=== PATIENT | male | born 1950 | race Caucasian/White ===

== ENCOUNTER 2016-12-28 06:44 | Day surgery (SDC) | payer OTHER ==
[2016-12-22 11:48] LABS: APPEARANCE,URINE CLEAR; BILIRUBIN,URINE NEGATIVE (NEGATIVE); GLUCOSE, URINE NEGATIVE (NEGATIVE); KETONES,URINE NEGATIVE (NEGATIVE); LEUKOCYTE ESTERASE,URINE NEGATIVE (NEGATIVE); NITRITE,URINE NEGATIVE (NEGATIVE); PROTEIN,URINE NEGATIVE (NEGATIVE); URINE SPECIFIC GRAVITY 1.004; UROBILINOGEN,URINE NEGATIVE mg/dL (<2.0)
[2016-12-22 13:08] LABS: HEMATOCRIT 48.5 % (37.9-51.0); HEMOGLOBIN 16.7 g/dL (13.5-17.0); HGB HCT DIFFERENCE 1.6; MEAN CORPUSCULAR HGB CONC 34.4 g/dL (32.0-36.0); MEAN CORPUSCULAR VOLUME 93 fl (80-97); RED BLOOD COUNT 5.22 10^6/uL (4.35-5.55); RED CELL DISTRIBUTION WIDTH 13.2 % (11.5-14.0); WHITE BLOOD COUNT 7.8 10^3/uL (4.0-10.5)
[2016-12-22 13:11] LABS: PROTHROMBIN TIME 12.4 SEC (11.4-15.4)
--- NOTE | 2016-12-23 11:22 | EKG REPORT ---
SEVERITY:- ABNORMAL ECG - SINUS RHYTHM LAD, CONSIDER LEFT ANTERIOR FASCICULAR BLOCK : Confirmed by: Robson Ramirez 23-Dec-2016 11:21:36
[~2016-12-28 06:44] MED LIST: CEFAZOLIN SODIUM 1 GM in DEXTROSE 5%-WATER 50 ML IV PRN; LACTATED RINGERS 1000 ML IV PRN; LIDOCAINE 0.5% INJ-PF (5 MG/ML) 50 ML SDV SUBCUT PRN
[2016-12-28] MEDS ORDERED: BUPIVACAINE HCL 0.25% /EPINEPHRINE INJ/PF 30 ML SDV ONE ×2 (07:48→09:28)
[2016-12-28] MEDS ORDERED: SODIUM BICARBONATE 8.4% INJ 50 MEQ/50 ML DISP.SYRIN ONE (07:48)
[2016-12-28] MEDS ORDERED: LIDOCAINE 1% INJ-PF (10 MG/ML) 30 ML SDV ONE ×2 (07:48→09:28)
[2016-12-28] MEDS ORDERED: MIDAZOLAM 2 MG/2 ML INJ ONE (08:07)
[2016-12-28] MEDS ORDERED: FENTANYL CITRATE INJ/PF 100 MCG/2 ML AMPUL ONE (08:07)
[2016-12-28] MEDS ORDERED: PROPOFOL INJ 200 MG/20 ML VIAL IV ONE (08:07)
[2016-12-28] MEDS ORDERED: EPHEDRINE SULFATE INJ 50 MG/1 ML AMPULE ONE (08:07)
[2016-12-28] MEDS ORDERED: DEXMEDETOMIDINE INJ 80 MCG/20 ML VIAL IV ONE (08:07)
[2016-12-28] MEDS ORDERED: PROMETHAZINE HCL INJ 25 MG/1 ML VIAL IV PRN ×2 (08:50)
[2016-12-28] MEDS ORDERED: FENTANYL CITRATE INJ/PF 100 MCG/2 ML AMPUL IV PRN ×3 (08:50)
[2016-12-28] MEDS ORDERED: OXYCODONE-ACETAMINOPHEN 5-325 MG TABLET PO PRN ×3 (08:50→11:03)
[2016-12-28] MEDS ORDERED: DIPHENHYDRAMINE HCL 50 MG/ML VIAL IV PRN (08:50)
[2016-12-28] MEDS ORDERED: MORPHINE SULFATE 10 MG/ML INJ IV PRN (08:50)
[2016-12-28] MEDS ORDERED: MEPERIDINE HCL/PF INJ 25 MG/1 ML DISP.SYRIN IV PRN (08:50)
[2016-12-28] MEDS ORDERED: CEFAZOLIN INJ 1 GM VIAL ONE (10:45)
--- NOTE | 2016-12-28 12:04 | OPERATIVE REPORT E ---
Operative Report NAME: EDU HERNANDEZ : 1950 AGE: 66Y DATE OF SURGERY: 12/28/2016 ROOM: PREOPERATIVE DIAGNOSES: 1. Chronic pain syndrome. 2. Lumbar radiculopathy. POSTOPERATIVE DIAGNOSES: 1. Chronic pain syndrome. 2. Lumbar radiculopathy. PROCEDURE: Spinal cord stimulator implant with [employer] single lead system. SURGEON: LESLYE LAI M.D. SALES LEADER: YONATHAN MAURO M.D. ANESTHESIA: MAC. COMPLICATIONS: None. PROCEDURE IN DETAIL: After obtaining informed consent, I advised the patient of all the risks and benefits including serious neurological injury, bleeding, infection, spinal fluid leak, allergic reaction, paralysis, nerve injury, , and failure to attain satisfactory relief. He was taken to the operating room and placed comfortably in the prone position, and MAC anesthesia was administered. After application of appropriate monitors, he was then prepped with ChloraPrep x2 and then draped. After appropriate waiting and drying time, he was visualized under fluoroscopy. An adequate space was found at L1-2. The skin over both the midline and buttock incision on the right and the midline were anesthetized with 1% lidocaine with bicarbonate followed by 0.25% Bupivacaine with epinephrine. Beginning at the midline incision, sharp and blunt dissection was performed down to the fascia using a midline approach. A 14-gauge Tuohy needle was placed in the epidural space of L1-2 using loss of resistance to saline technique. The electrode was placed at the top of T7, being positioned in the midline, slightly right of midline. The lead was then tested and appropriate stimulation was found with a discussion with the patient with both low back and right lower extremity coverage. Once again, the lead was then secured using pursestrings with anchors in place, using Mersilene suture, the anchors were then sutured in place. The needle was removed with confirmation under fluoroscopy with appropriate placement of leads. The pursestrings were secured and anchor was secured as well. While lead positioning was occurring, Dr. Yonathan Mauro was assisting, creating the pocket for the new pulse generator on the right. As soon as the pocket was made, proper hemostasis was confirmed, tissue between the pockets for tunneling was then performed using anesthesia 1% lidocaine and standard tunneling tool. Both incisions were felt to be satisfactory and proper hemostasis was confirmed. The wires were easily placed in the midline, stitched, attached to the pulse generator, which was then tested and appropriate communication was made. All connections were secure. The position was again checked under fluoroscopy in both lateral and AP views. The wounds were then copiously irrigated. The areas were then closed with interrupted vertical mattress suture using 3-0 Vicryl. [place] were not used, only tape and Dermabond. Skin cement was used. OpSite dressing was then placed over the sites. The patient was taken to the PACU for further postoperative wound care management and will follow up in clinic tomorrow. DICTATING PHYSICIAN: LESLYE LAI M.D. [id number] PHY#: [id number] ID: [id number] JOB#: [id number] ACCT: [id number] cc:LESLYE LAI M.D. > MTDD
[2016-12-28 12:36] VITALS: BP 135/82
[2016-12-28] MEDS ORDERED: LIDOCAINE 2% INJ-PF (20 MG/ML) 10 ML AMPUL ONE (12:42)
--- NOTE | 2017-01-26 15:26 | HISTORY AND PHYSICAL E ---
History and Physical NAME: EDU HERNANDEZ : 1950 AGE: 66Y ADMITTED: 12/28/2016 ROOM: CHIEF COMPLAINT: Low back pain and right lower extremity pain, presenting for a spinal cord stimulator implantation. HISTORY OF PRESENT ILLNESS: The patient is a 66-year-old male. He had a back injury about 3 years ago while working at [employer]. He notes that the pain occurred after heavy lifting and pulling different objects and this is when he first started noticing the back pain. Patient notes that he had MRI and EMG after evaluation by his PCM and was told that he had radiculopathy in his right lower extremity. He has had injections in his lower back, which were only partially effective. He has constant back pain with intermittent radicular pain down his right lower extremity, worse with activity. He has intermittent numbness. He notes sometimes he uses a cane because he can fall because of the numbness in his leg. The pain is moderate, intolerable most of the time. He notes that the pain can be severe. The pain in his back is axial and primarily right sided. He notes that it is just a severe deep ache. Other than injections, the spinal cord stimulator trial was effective. He denies any new numbness, weakness, or loss of bowel and bladder control. He has tried multiple medications with minimal benefit given side effects of sedation and falling asleep. REVIEW OF SYSTEMS: Negative other than for: HEENT: Positive decreased hearing. Eyes: Positive for glasses. RESPIRATORY: Positive for snoring. CARDIAC: A prior stent history. GASTROINTESTINAL: Negative. URINARY: Negative. PERIPHERAL VASCULAR: Negative. MUSCULOSKELETAL: Positive low back pain. NEUROLOGICAL: Positive right lower extremity weakness. PSYCHIATRIC: Negative. GENITAL REPRODUCTIVE: Negative. MEDICAL HISTORY: History of MS November 2014. PREVIOUS SURGERIES: 1. Nephrectomy. 2. Heart stent. 3. Lower GI bleed. FAMILY HISTORY: Positive for CVA in father. SOCIAL HISTORY: Denies smoking, drinking, or illicit drug use. ALLERGIES: NKDA PHYSICAL EXAMINATION: VITAL SIGNS: Weight 190 pounds, height 5 foot 11. Blood pressure at last clinical visit 136/79 with a pulse of 77. LABS: MRI back on December 03, 2014 showing multilevel lumbar disk bulging due to degenerative disk degenerative, degenerative changes most pronounced at L5-S1 where there was [id number] bilateral foraminal stenosis. Nerve conduction study showing polyradiculopathy involving L3-L4, L4-L5, L5-S1 predominantly on the right. GENERAL APPEARANCE: He appears to be well groomed, appears to be well nourished and well developed. Gait: Had antalgic gait, persistent leg pain. SPINE: Lumbar spine no scoliosis. no curvature noted on inspection. Decreased flexion and extension. He notes tenderness in the paravertebral muscles, but no trigger points or tight muscle bands. Spinous process tenderness is noted the entire lumbar spine. No PSIS tenderness and no SI joint tenderness. Straight leg test is positive on the right at 60 degrees. HIP: No tenderness to palpation. KNEE: Inspection of the knee joint reveals no deformity, swelling, asymmetry, malalignments. No tenderness noted on exam. EXTREMITIES: Warm and well perfused. HEAD: Normocephalic. SKIN: No abnormal skin lesions. EYES: Eyelids appear normal. No signs of ptosis, lid lag, or lid edema. NEUROLOGIC:Cranial nerves II-XII grossly intact. Sensory decreased to light touch over entire right lower extremity, nondermatomal. Reflexes 2+ and equal and symmetric in upper and lower extremity. Cerebellar exam shows gait antalgic, normal speech, and no nystagmus. Involuntary movements: None noted. RESPIRATORY: Clear to auscultation bilaterally. CARDIOVASCULAR: Regular rate and rhythm. S1 and S2 are normal. No abnormal heart sounds. GASTROINTESTINAL: Soft, nontender. PSYCHIATRIC: Alert and oriented x3. Normal mood. Appropriate affect and appropriate memory. DIAGNOSES: 1. Lumbosacral disk degeneration. 2. Spinal stenosis. 3. Chronic pain syndrome. 4. Lumbar radiculopathy. 5. Myofascial pain syndrome. TREATMENT PLAN: Patient wishes to continue to avoid further medications given side effects. He has had a positive spinal cord stimulator trial. He has failed other conservative injection modalities, PT, medication trials given limited benefit. Will plan to proceed with spinal cord stimulator implantation. He will be given instructions on activity restrictions over the next few weeks and will follow up in clinic post implantation for wound check. DICTATING PHYSICIAN: LESLYE LAI M.D. [id number] PHY#: [id number] ID: [id number] JOB#: [id number] ACCT: [id number] cc:LESLYE LAI M.D. > [facility]
== END 2016-12-28 12:30 | disposition home or self-care (01) ==
LOC: OROUT 06:44
PROVIDERS: ATTEND Student in an Organized Health Care Education/Training Program
PROC: 00HU3MZ Insertion of Neurostimulator Lead into Spinal Canal, Percutaneous Approach (ICD-10-PCS; 2016-12-28)
PROC: 0JH70MZ Insertion of Stimulator Generator into Back Subcutaneous Tissue and Fascia, Open Approach (ICD-10-PCS; principal; 2016-12-28 09:00)
DX: M54.16 Radiculopathy, lumbar region (principal); G89.4 Chronic pain syndrome; M51.37 Other intervertebral disc degeneration, lumbosacral region; M48.00 Spinal stenosis, site unspecified; M79.1 Myalgia; R06.83 Snoring; F17.210 Nicotine dependence, cigarettes, uncomplicated; Z98.61 Coronary angioplasty status; Z90.5 Acquired absence of kidney; Z85.528 Personal history of other malignant neoplasm of kidney; Z79.899 Other long term (current) drug therapy; Z79.82 Long term (current) use of aspirin
CPT/HCPCS: 63650; 63685; C1778; C1787; C1820; 1936; 36415; 71020; 72080; 81001; 85027; 85610; 85730; 93005; 93010; J0690; J2250; J2704; J3010; J3490

== ENCOUNTER 2017-01-14 12:09 | Emergency (ER) | payer OTHER ==
--- NOTE | 2017-01-14 12:18 | ER Document Report ---
ED Medical Screen (RME) - General Stated Complaint: BACK PAIN Mode of Arrival: Wheelchair Information source: Patient Notes: Patient states that he was working in his yard and developed low back pain yesterday. Patient does report having a stimulator placed recently in his back several weeks ago. Patient denies any urinary symptoms. I have greeted and performed a rapid initial assessment of this patient. A comprehensive ED assessment and evaluation of the patient, analysis of test results and completion of the medical decision making process will be conducted by additional ED providers. TRAVEL OUTSIDE OF THE [place] IN LAST 30 DAYS: No - Related Data Allergies/Adverse Reactions: No Known Allergies Allergy (Verified 12/16/16 17:52) Past Medical History - Past Medical History Cardiac Medical History: Reports: Hx Heart Attack - STENT X1, Hx Hypercholesterolemia Denies: Hx Coronary Artery Disease, Hx Hypertension Pulmonary Medical History: Reports: Hx Pneumonia Denies: Hx Asthma, Hx Bronchitis, Hx COPD Neurological Medical History: Denies: Hx Cerebrovascular Accident, Hx Seizures Endocrine Medical History: Denies: Hx Diabetes Mellitus Type 1, Hx Diabetes Mellitus Type 2, Hx Graves' Disease, Hx Hyperthyroidism, Hx Hypothyroidism Malignancy Medical History: Reports Hx Renal (Kidney) Cancer Musculoskeltal Medical History: Denies Hx Arthritis Psychiatric Medical History: Denies: Hx Depression Past Surgical History: Reports: Hx Kidney (Renal Surgery) - Immunizations Hx Diphtheria, Pertussis, Tetanus Vaccination: Yes Physical Exam - Vital signs Vitals: Temp Pulse Resp BP Pulse Ox 97.4 F 87 18 144/81 H 97 01/14/17 12:15 01/14/17 12:15 01/14/17 12:15 01/14/17 12:15 01/14/17 12:15 - Back Back: Tender - Or lumbar tenderness Course - Vital Signs Vital signs: Temp Pulse Resp BP Pulse Ox 97.4 F 87 18 144/81 H 97 01/14/17 12:15 01/14/17 12:15 01/14/17 12:15 01/14/17 12:15 01/14/17 12:15
[2017-01-14] MEDS ORDERED: ACETAMINOPHEN 325 MG TABLET PO ONE (12:19)
--- NOTE | 2017-01-14 14:18 | ER Document Report ---
ED Neck/Back Problem - General Chief Complaint: Back Pain Stated Complaint: BACK PAIN Time seen by provider: 14:10 Mode of Arrival: Wheelchair Information source: Patient TRAVEL OUTSIDE OF THE [place] IN LAST 30 DAYS: No - HPI Patient complains to provider of: Pain - 66-year-old male with history of chronic back pain and degenerative disc disease. He presents with increasing pain since yesterday. He had no fall or injury but is having severe shooting pain and spasms. He has chronic right lower extremity weakness and numbness. Pain is worse with range of motion. He has been followed by pain management and had a TENS unit put in a couple of weeks ago but is not currently taking any pain medications. Denies any new numbness weakness urinary or stool incontinence or retention. No chest pain or abdominal pain. He reports the pain is consistent with his prior pain just much more severe., Lower back Onset: Cannot confirm Recent injury: No - Related Data Allergies/Adverse Reactions: No Known Allergies Allergy (Verified 01/14/17 12:17) Past Medical History - General Information source: Patient - Social History Smoking Status: Former Smoker Cigarette use (# per day): Yes - A few per day Chew tobacco use (# tins/day): No Frequency of alcohol use: None Drug Abuse: None Family History: Reviewed & Not Pertinent Patient has suicidal ideation: No Patient has homicidal ideation: No - Past Medical History Cardiac Medical History: Reports: Hx Heart Attack - STENT X1, Hx Hypercholesterolemia Denies: Hx Coronary Artery Disease, Hx Hypertension Pulmonary Medical History: Reports: Hx Pneumonia Denies: Hx Asthma, Hx Bronchitis, Hx COPD Neurological Medical History: Denies: Hx Cerebrovascular Accident, Hx Seizures Endocrine Medical History: Denies: Hx Diabetes Mellitus Type 1, Hx Diabetes Mellitus Type 2, Hx Graves' Disease, Hx Hyperthyroidism, Hx Hypothyroidism Renal/ Medical History: Denies: Hx Peritoneal Dialysis Malignancy Medical History: Reports Hx Renal (Kidney) Cancer Musculoskeltal Medical History: Denies Hx Arthritis Psychiatric Medical History: Denies: Hx Depression Past Surgical History: Reports: Hx Kidney (Renal Surgery) - Immunizations Hx Diphtheria, Pertussis, Tetanus Vaccination: Yes Review of Systems - Review of Systems -: Yes All other systems reviewed and negative Physical Exam - Vital signs Vitals: Temp Pulse Resp BP Pulse Ox 97.4 F 87 18 144/81 H 97 01/14/17 12:15 01/14/17 12:15 01/14/17 12:15 01/14/17 12:15 01/14/17 12:15 Interpretation: Normal - Notes Notes: GENERAL: Well-appearing, well-nourished and in no acute distress until he moves and he is in obvious pain and spasm noted HEAD: Atraumatic, normocephalic. EYES: Pupils equal round and reactive to light, extraocular movements intact, sclera anicteric, conjunctiva are normal. ENT: Moist mucous membranes. NECK: Normal range of motion, supple LUNGS: Breath sounds clear to auscultation bilaterally and equal. No wheezes rales or rhonchi. HEART: Regular rate and rhythm without murmurs. Equal distal pulses, 2+ ABDOMEN: Nontender, no palpable mass or pulsatile area Soft, normoactive bowel sounds. No guarding, no rebound. No masses appreciated. EXTREMITIES: Normal range of motion except for severe pain noted with right lower extremity movement, no pitting or edema. No cyanosis. NEUROLOGICAL: Cranial nerves grossly intact. Normal speech, there is no saddle anesthesia. There is some slight decreased sensation over the L5 region which she states is chronic. PSYCH: Normal mood, normal affect. SKIN: Warm, Dry, normal turgor, no rashes or lesions noted., Well-healing incision noted. Of note pain is inferior to the incision and very tender to palpation over the right paraspinal musculature with spasm - General General appearance: Appears well, Alert - HEENT Head: Normocephalic, Atraumatic Eyes: Normal Pupils: PERRL - Respiratory Respiratory status: No respiratory distress Chest status: Nontender Breath sounds: Normal Chest palpation: Normal - Cardiovascular Rhythm: Regular Heart sounds: Normal auscultation Murmur: No - Abdominal Inspection: Normal Distension: No distension Bowel sounds: Normal Tenderness: Nontender Organomegaly: No organomegaly - Back Back: Normal, Nontender - Extremities General upper extremity: Normal inspection, Nontender, Normal color, Normal ROM , Normal temperature General lower extremity: Normal inspection, Nontender, Normal color, Normal ROM , Normal temperature, Normal weight bearing. No: Bonifacio's sign - Neurological Neuro grossly intact: Yes Cognition: Normal Orientation: AAOx4 [place] Coma Scale Eye Opening: Spontaneous [place] Coma Scale Verbal: Oriented [place] Coma Scale Motor: Obeys Commands [place] Coma Scale Total: 15 Speech: Normal Motor strength normal: LUE, RUE, LLE, RLE Sensory: Normal - Psychological Associated symptoms: Normal affect, Normal mood - Skin Skin Temperature: Warm Skin Moisture: Dry Skin Color: Normal Course - Re-evaluation Re-evalutation: 01/14/17 14:19 Patient's exam seemed consistent with muscle spasm and a chronic pain exacerbation. He denies history of malignancies and reports this is pain typical of prior. We discussed x-ray which I felt would be unlikely to add anything to his care. He understands warning signs to watch for including fever or worsening in general. I discussed with him referral back to his pain management clinic for further long-term care. - Vital Signs Vital signs: Temp Pulse Resp BP Pulse Ox 97.4 F 87 18 144/81 H 97 01/14/17 12:15 01/14/17 12:15 01/14/17 12:15 01/14/17 12:15 01/14/17 12:15 Discharge - Discharge Clinical Impression: Acute exacerbation of chronic low back pain Condition: Good Disposition: HOME, SELF-CARE Additional Instructions: LOW BACK PAIN: Three out of every four people will have an episode of disabling back pain during their lifetime. Most commonly the pain is due to straining of the muscles and ligaments in the low back. Usual treatment includes: (1) Rest on a firm surface. Avoid lying on your stomach. (2) Ice pack the painful area. After a few days, gentle heat may be used intermittently to relax the area, or ice packs can be continued. (3) Medication may be needed -- muscle relaxers and antiinflammatory medicines are commonly used. (4) As the back improves, exercises are prescribed to strengthen the back and abdominal muscles. Your doctor will advise you on the proper care for your back at each stage in your recovery. You may be better in a few days -- or healing may take several weeks. If new symptoms of a "herniated disc" (radiation of pain, numbness, or tingling down the back of the leg or weakness in the leg) occur, you should be re-examined. Further testing may be necessary. ORAL NARCOTIC MEDICATION: You have been given a prescription for pain control. This medication is a narcotic. It's best taken with food, as nausea can result if taken on an empty stomach. Don't operate machinery or drive within six hours of taking this medication. Do not combine this medicine with alcohol, or with any medication which can cause sedation (such as cold tablets or sleeping pills) unless you get permission from the physician. Narcotics tend to cause constipation. If possible, drink plenty of fluids and eat a diet high in fiber and fruits. Please be aware that prescription narcotics also have the potential for abuse. People become addicted to these medications because of the general sense of wellbeing that they induce. This feeling along with a significant reduction in tension, anxiety, and aggression provides a stimulating seductive quality to these drugs. Once your pain is under control, we encourage you to discard your unused narcotics. MUSCLE RELAXERS: Muscle relaxing medications are usually prescribed for acute muscle spasm or injury to the neck and back. They are often combined with antiinflammatory pain medication for increased relief. You may stop the muscle relaxer when the pain and stiffness have improved. Start the medication again if spasms recur. Muscle relaxers may cause drowsiness, especially with the first dose. Do not operate machinery or drive while under the effects of the medication. Most muscle relaxers last up to 24 hours. Do not combine the medication with alcohol. ICE PACKS: Apply ice packs frequently against the painful area. Many different schedules are recommended, such as "20 minutes on, 20 minutes off" or "one hour ice, two hours rest." If you need to work, you may need to go longer between ice treatments. You should plan to have the area ice packed AT LEAST one fourth of the time. The ice should be applied over the wrap, tape, or splint, or over a layer of cloth -- not directly against the skin. Some ice bags have a built-in cloth and can be put directly on the skin. WARM PACKS: After approximately two days, apply gentle heat (such as a heating pad or hot water bottle) for about 20 to 30 minutes about every two hours -- at least four times daily. Warmth and elevation will help you make a more rapid recovery , and will ease the pain considerably. Do not use HOT heat, and never apply heat for longer than 30 minutes. The continuous heat can invisibly damage skin and muscles -- even when no burn is seen on the surface. Damaged muscles can make you MORE sore. FOLLOW-UP CARE: If you have been referred to a physician for follow-up care, call the physician s office for an appointment as you were instructed or within the next two days. If you experience worsening or a significant change in your symptoms, notify the physician immediately or return to the Emergency Department at any time for re-evaluation. Prescriptions: Cyclobenzaprine HCl [Flexeril 10 mg Tablet] 10 mg PO TIDP PRN #15 tab PRN Reason: Hydrocodone/Acetaminophen [[place] 5-325 mg Tablet] 2 tab PO Q6H #10 tab
[2017-01-14] MEDS ORDERED: HYDROMORPHONE HCL INJ/PF 2 MG/ML AMPULE IM ONE (14:23)
[2017-01-14] MEDS ORDERED: KETOROLAC TROMETHAMINE 60 MG/2 ML SDV IM ONE (14:23)
[2017-01-14 15:45] VITALS: BP 145/73
== END 2017-01-14 15:45 | disposition home or self-care (01) ==
LOC: ER 12:09
DX: M54.5 Low back pain (principal); M54.9 Dorsalgia, unspecified; G89.29 Other chronic pain; Z87.891 Personal history of nicotine dependence
CPT/HCPCS: 99283; 96372; J1885; J1170

== ENCOUNTER → 2017-05-12 | Outpatient (CLI) | payer MEDICARE, OTHER ==
--- NOTE | 2017-05-12 17:55 | RADIOLOGY REPORT (SQ) ---
EXAM DESCRIPTION: KUB/ABDOMEN (SINGLE VIEW) COMPLETED DATE/TIME: 05/12/2017 5:35 pm REASON FOR STUDY: CONFIRM LOCATION OF STIMULATOR M54.5 LOW BACK PAIN COMPARISON: None. NUMBER OF VIEWS: One view. TECHNIQUE: Supine radiographic image of the abdomen acquired. LIMITATIONS: None. FINDINGS: BOWEL GAS PATTERN: Normal bowel gas pattern. No dilated loops. CALCIFICATIONS: A small calcification overlies the midportion of the left kidney. SOFT TISSUES: No gross mass or suggestion of organomegaly. HARDWARE: A stimulator overlies the right sacroiliac joint. BONES: No acute fracture. No worrisome bone lesions. OTHER: No other significant finding. IMPRESSION: Findings as described. TECHNICAL DOCUMENTATION: JOB ID: [id number] [employer]- All Rights Reserved
== END ==
LOC: RAD 16:58
PROVIDERS: ATTEND Physician Assistant
DX: M54.5 Low back pain (principal)
CPT/HCPCS: 74000

== ENCOUNTER → 2017-05-31 | Outpatient (CLI) | payer MEDICARE, OTHER ==
--- NOTE | 2017-05-31 08:10 | RADIOLOGY REPORT (SQ) ---
EXAM DESCRIPTION: T SPINE AP/LAT COMPLETED DATE/TIME: 05/31/2017 7:53 am REASON FOR STUDY: Check placement of Stimulator leads M54.5 LOW BACK PAIN COMPARISON: None. NUMBER OF VIEWS: Two views. TECHNIQUE: AP and lateral radiographic images acquired of the thoracic spine. LIMITATIONS: None. FINDINGS: MINERALIZATION: Normal. ALIGNMENT: Normal. No scoliosis. VERTEBRAE: No fracture or bone lesion. Maintained height, normal segmentation. DISCS: Multilevel disc space narrowing with osteophytes. HARDWARE: A single spinal electrode is present with the tip in the mid thoracic region. Visualized p ortion of the electrode appears intact. MEDIASTINUM AND SOFT TISSUES: Normal heart size and aortic contour. No soft tissue abnormality. VISUALIZED LUNG CARRIZALES: Clear. OTHER: No other significant finding. IMPRESSION: SPONDYLOSIS WITHOUT BONE LESION OR FRACTURE. HARDWARE DESCRIBED. TECHNICAL DOCUMENTATION: JOB ID: [id number] [facility]- All Rights Reserved
--- NOTE | 2017-05-31 09:24 | RADIOLOGY REPORT (SQ) ---
EXAM DESCRIPTION: MRI LUMBAR SPINE WITHOUT COMPLETED DATE/TIME: 05/31/2017 9:04 am REASON FOR STUDY: LOW BACK PAIN (M54.5) M54.5 LOW BACK PAIN COMPARISON: CT abdomen pelvis 05/23/2014 MRI lumbar spine 10/05/2013, 05/12/2017 TECHNIQUE: Sagittal and Axial imaging includes T1, T2, STIR and gradient echo sequences. Coronal T2/ HASTE imaging. LIMITATIONS: None. FINDINGS: VISUALIZED UPPER ABDOMEN: Right kidney absent SEGMENTATION: No transitional anatomy. The lowest well-developed disc space is labeled L5-S1. ALIGNMENT: Anatomic. VERTEBRAE: Intact. BONE MARROW: Normal. No marrow replacement or reactive changes. DISC SIGNAL: Diffuse decreased T2 weighted intervertebral disc signal. Disc space loss of height at L5-S1. POSTERIOR ELEMENTS: Generally intact. No pars defect evident. HARDWARE: None in the spine. CORD AND CONUS: Normal in size and signal intensity. Conus at the appropriate level. SOFT TISSUES: No aortic aneurysm seen. No bulky retroperitoneal adenopathy or mass. No paraspinal mas s or fluid. T11-12: At the upper edge of the field of view. Bulky bilateral facet hypertrophy is present causin g mild bilateral foraminal narrowing. No central stenosis. T12-L1: Unremarkable L1-L2: No significant spinal stenosis or exit foraminal stenosis. Mild bilateral facet and ligament hypertrophy. L2-L3: No significant spinal stenosis or exit foraminal stenosis. Moderate bilateral facet and ligam ent hypertrophy. Mild posterior disc bulge. L3-L4: Broad diffuse posterior disc bulging is present with a small central protrusion. This finding along with moderate bilateral facet and ligament hypertrophy causes borderline central canal narrowi ng and mild bilateral inferior foraminal narrowing. No exiting L3 nerve root impingement. L4-L5: Broad diffuse posterior disc bulging is present with moderate bilateral facet and ligament hyp ertrophy. No central stenosis. Mild bilateral inferior foraminal narrowing without exiting L4 nerve root impingement. L5-S1: Mild diffuse posterior disc bulging is present. Bulky bilateral facet hypertrophy is present. On the left side, of facet joint synovial cyst is also present. These findings combine to cause alexander rderline central canal narrowing and mild bilateral inferior foraminal narrowing without exiting L5 n erve root impingement SACRUM: Visualized upper sacrum intact. OTHER: No other significant findings. IMPRESSION: Mild diffuse degenerative changes as above. TECHNICAL DOCUMENTATION: JOB ID: [id number] [employer]- All Rights Reserved
== END ==
LOC: RAD 06:57
PROVIDERS: ATTEND Physician Assistant
DX: M54.5 Low back pain (principal); M48.06 Spinal stenosis, lumbar region; M47.894 Other spondylosis, thoracic region
CPT/HCPCS: 72070; 72148

== ENCOUNTER → 2017-07-26 | Outpatient (CLI) | payer MEDICARE, OTHER ==
--- NOTE | 2017-07-26 10:28 | RADIOLOGY REPORT (SQ) ---
EXAM DESCRIPTION: T SPINE AP/LAT COMPLETED DATE/TIME: 07/26/2017 10:04 am REASON FOR STUDY: THORACIC STENOSIS (M48.04) M54.16 RADICULOPATHY, LUMBAR REGION M48.04 SPINAL CARMEN NOSIS, THORACIC REGION COMPARISON: None. NUMBER OF VIEWS: Two views. TECHNIQUE: AP and lateral radiographic images acquired of the thoracic spine. LIMITATIONS: None. FINDINGS: MINERALIZATION: Normal. ALIGNMENT: There is scoliosis. There is concavity toward the right in the lower dorsal spine. VERTEBRAE: No fracture or bone lesion. Maintained height, normal segmentation. DISCS: No significant loss of height or significant narrowing. No large osteophytes. HARDWARE: Neurostimulator is in place. MEDIASTINUM AND SOFT TISSUES: Normal heart size and aortic contour. No soft tissue abnormality. VISUALIZED LUNG CARRIZALES: Clear. OTHER: No other significant finding. IMPRESSION: Mild scoliosis no other significant findings. TECHNICAL DOCUMENTATION: JOB ID: [id number] [employer]- All Rights Reserved
--- NOTE | 2017-07-26 10:41 | RADIOLOGY REPORT (SQ) ---
EXAM DESCRIPTION: SPINE SINGLE VIEW COMPLETED DATE/TIME: 07/26/2017 10:04 am REASON FOR STUDY: LUMBAR RADICULOPATHY (M54.16) M54.16 RADICULOPATHY, LUMBAR REGION M48.04 SPINAL STENOSIS, THORACIC REGION COMPARISON: None. NUMBER OF VIEWS: One view. TECHNIQUE: A lateral radiographic image acquired of the lumbar spine. LIMITATIONS: None. FINDINGS: MINERALIZATION: Normal. SEGMENTATION: Normal. No transitional anatomy. ALIGNMENT: Normal. VERTEBRAE: Maintained height. No fracture or worrisome bone lesion. DISCS: There may be narrowing at L4-5. POSTERIOR ELEMENTS: Hypertrophic facet changes are suggested at L5-S1. HARDWARE: A neural stimulator is present. PARASPINAL SOFT TISSUES: Normal. PELVIS: Intact as visualized. No fractures or worrisome bone lesions. SI joints intact. OTHER: No other significant finding. IMPRESSION: Degenerative disc disease and facet arthropathy. TECHNICAL DOCUMENTATION: JOB ID: [id number] [employer]- All Rights Reserved
--- NOTE | 2017-07-26 10:44 | RADIOLOGY REPORT (SQ) ---
EXAM DESCRIPTION: L SPINE FLEX/EXT ONLY COMPLETED DATE/TIME: 07/26/2017 10:04 am REASON FOR STUDY: LUMBAR RADICULOPATHY (M54.16) M54.16 RADICULOPATHY, LUMBAR REGION M48.04 SPINAL STENOSIS, THORACIC REGION COMPARISON: None. NUMBER OF VIEWS: Two views TECHNIQUE: Lateral views of the lumbar spine with flexion and extension. LIMITATIONS: None. FINDINGS: MINERALIZATION: Normal. SEGMENTATION: Normal. No transitional anatomy. ALIGNMENT: Normal. FLEXION/EXTENSION: No instability. Normal movement. VERTEBRAE: Maintained height. No fracture or worrisome bone lesion. DISCS: Disc spaces are narrowed at L4-5 and L5-S1. Small anterior osteophytes are present. POSTERIOR ELEMENTS: Hypertrophic facet changes are present at L4-5 and L5-S1. HARDWARE: None in the spine. OTHER: No other significant finding. IMPRESSION: Degenerative disc disease, spondylosis, facet arthropathy. No instability on flexion and extension, normal movement. TECHNICAL DOCUMENTATION: JOB ID: [id number] [employer]- All Rights Reserved
== END ==
LOC: RAD 08:48
PROVIDERS: ATTEND Specialist
DX: M54.16 Radiculopathy, lumbar region (principal); M48.04 Spinal stenosis, thoracic region
CPT/HCPCS: 72020; 72070; 72120

== ENCOUNTER → 2018-11-27 | Outpatient (CLI) | payer MEDICARE, OTHER ==
[2018-11-27 10:30] LABS: ABSOLUTE BASOPHILS # (AUTO) 0.1 10^3/uL (0.0-0.2); ABSOLUTE EOSINOPHILS # (AUTO) 0.2 10^3/uL (0.0-0.6); ABSOLUTE LYMPHOCYTES (AUTO) 2.2 10^3/uL (0.5-4.7); ABSOLUTE MONOCYTES (AUTO) 0.6 10^3/uL (0.1-1.4); ABSOLUTE NEUT (AUTO) 3.9 10^3/uL (1.7-8.2); BASOPHILS % (AUTO) 0.9 % (0-2); EOSINOPHILS % (AUTO) 2.8 % (0-6); HEMATOCRIT 46.5 % (37.9-51.0); HEMOGLOBIN 16.2 g/dL (13.5-17.0); LYMPHOCYTES % (AUTO) 32.2 % (13-45); MEAN CORPUSCULAR HEMOGLOBIN 32.9 pg (27.0-33.4); MEAN CORPUSCULAR HGB CONC 34.9 g/dL (32.0-36.0); MEAN CORPUSCULAR VOLUME 95 fl (80-97); MONOCYTES % (AUTO) 8.3 % (3-13); PLATELET COUNT 175 10^3/uL (150-450); RED BLOOD COUNT 4.92 10^6/uL (4.35-5.55); RED CELL DISTRIBUTION WIDTH 13.6 % (11.5-14.0); SEGMENTED NEUTROPHILS % (AUTO) 55.8 % (42-78); TOTAL CELLS COUNTED % (AUTO) 100 %
[2018-11-27 10:53] LABS: ALANINE AMINOTRANSFERASE 26 U/L (21-72); ALBUMIN 3.9 g/dL (3.5-5.0); ALKALINE PHOSPHATASE 82 U/L (38-126); ANION GAP 5 (5-19); ASPARTATE AMINO TRANSFERASE 26 U/L (17-59); BILIRUBIN,DIRECT 0.2 mg/dL (0.0-0.4); BILIRUBIN,TOTAL 0.5 mg/dL (0.2-1.3); BLOOD UREA NITROGEN 20 mg/dL (7-20); CALCIUM 9.7 mg/dL (8.4-10.2); CARBON DIOXIDE 32 mmol/L (22-30); CHLORIDE 106 mmol/L (98-107); GLUCOSE 99 mg/dL (75-110); POTASSIUM 5.2 mmol/L (3.6-5.0); SODIUM 143.1 mmol/L (137-145); TOTAL PROTEIN 6.5 g/dL (6.3-8.2)
[2018-11-27 11:20] LABS: ERYTHROCYTE SEDIMENTATION RATE 5 mm/hr (0-20)
== END ==
LOC: OD 09:16
PROVIDERS: ATTEND Physician Assistant
DX: R07.9 Chest pain, unspecified (principal)
CPT/HCPCS: 36415; 80053; 84484; 85025; 85652